=== PATIENT | male | born 1970 | race Caucasian/White ===

== ENCOUNTER → 2017-02-26 | Outpatient (REF) ==
--- NOTE | 2017-02-27 01:19 | REP ---
Clinical: Postmortem. Technique: Portable AP view of the skull. Findings: The patient appears intubated. Skull appears intact in the frontal projection. Old left clavicle fracture identified. Impression: No obvious calvarial fracture. Signed by Jose Blount MD 02/27/2017 01:11 A
--- NOTE | 2017-02-27 01:30 | REP ---
Clinical: Postmortem. Technique: Portable AP view of the pelvis. Findings: No acute fracture or dislocation. Skeletal structures and joint spaces appear intact and symmetric. Surrounding soft tissues without obvious subcutaneous emphysema or radiodense foreign body. Impression: No acute fracture or dislocation appreciated. Signed by Jose Blount MD 02/27/2017 01:22 A
--- NOTE | 2017-02-27 02:58 | REP ---
Clinical: Postmortem evaluation. Technique: Portable supine view of the chest. Findings: Evaluation is significantly limited by underpenetration. Multiple left rib fractures are identified along with subcutaneous emphysema. Endotracheal tube extends midline to the T3 level. Suggestion for old left clavicle fracture. Impression: Multiple left rib fractures and subcutaneous emphysema. Limited evaluation. Signed by Jose Blount MD 02/27/2017 02:49 A
--- NOTE | 2017-02-27 03:07 | REP ---
Clinical: Postmortem evaluation. Technique: Portable lateral view of the cervical spine. Findings: Visualized calvarium and upper cervical spine in the lateral projection is without obvious acute fracture or pneumocephalus. The patient appears intubated. Impression: No obvious acute injury involving the calvarium or cervical spine through the C3 level. Signed by Jose Blount MD 02/27/2017 02:58 A
== END ==
LOC: M LAB 11:34